=== PATIENT | female | born 1985 | race African-American/Black ===

== ENCOUNTER 2017-04-07 13:35 | Emergency (ER) | payer OTHER ==
[~2017-04-07] VITALS: Ht 162.6 cm; Wt 79.4 kg
[2017-04-07 16:58] VITALS: BP 146/89
[2017-04-07] MEDS ORDERED: cefTRIAXone SOD 1,000 MG VL IM ONE (17:30)
[2017-04-07] MEDS ORDERED: IBUPROFEN 800 MG TAB PO ONE (17:30)
== END 2017-04-07 17:56 | disposition home or self-care (01) ==
LOC: ER 13:35
DX: J03.90 Acute tonsillitis, unspecified (principal)
CPT/HCPCS: 96372; 99283; J0696

== ENCOUNTER 2017-08-06 13:59 | Emergency (ER) | payer OTHER, MEDICAID ==
[~2017-08-06] VITALS: Ht 162.6 cm; Wt 79.4 kg
[2017-08-06 15:11] VITALS: BP 124/63
[2017-08-06] MEDS ORDERED: IBUPROFEN 800 MG TAB PO ONE (16:00)
[2017-08-06] MEDS ORDERED: CYCLOBENZAPRINE HCL 10 MG TAB PO ONE (16:00)
== END 2017-08-06 16:59 | disposition home or self-care (01) ==
LOC: ER 14:08
DX: S13.4XXA Sprain of ligaments of cervical spine, initial encounter (principal); V43.62XA Car passenger injured in collision with other type car in traffic accident, initial encounter; Y93.89 Activity, other specified; Y92.89 Other specified places as the place of occurrence of the external cause; Y99.8 Other external cause status
CPT/HCPCS: 72125; 81025

== ENCOUNTER 2017-12-24 18:02 | Emergency (ER) | payer OTHER, MEDICAID ==
[~2017-12-24] VITALS: Ht 165.1 cm; Wt 81.6 kg
[2017-12-24 18:28] VITALS: BP 155/89
== END 2017-12-24 18:57 | disposition left against medical advice (07) ==
LOC: ER 18:02
DX: R73.9 Hyperglycemia, unspecified (principal); Z53.21 Procedure and treatment not carried out due to patient leaving prior to being seen by health care provider
CPT/HCPCS: 82962

== ENCOUNTER 2019-03-27 11:16 | Emergency (ER) | payer MEDICAID, OTHER ==
[~2019-03-27] VITALS: Ht 162.6 cm; Wt 77.1 kg
[2019-03-27 11:34] VITALS: BP 131/73
[2019-03-27] MEDS ORDERED: KETOROLAC TROMETH 60MG/2ML VIAL IM ONE (14:15)
[2019-03-27] MEDS ORDERED: cefTRIAXone SOD 1,000 MG VL IM ONE (14:15)
== END 2019-03-27 14:41 | disposition home or self-care (01) ==
LOC: ER 11:16
DX: N76.2 Acute vulvitis (principal)
CPT/HCPCS: 96372; 99283; J0696; J1885

== ENCOUNTER 2019-03-30 11:42 | Emergency (ER) | payer MEDICAID ==
[~2019-03-30] VITALS: Ht 162.6 cm; Wt 77.1 kg
[2019-03-30] MEDS ORDERED: LIDOCAINE 1% HCL (LOCAL ANESTH.) INJ 20ML MDV IJ ONE (15:30)
[2019-03-30] MEDS ORDERED: KETOROLAC TROMETH 60MG/2ML VIAL IM ONE (16:15)
[2019-03-30 16:30] VITALS: BP 125/80
== END 2019-03-30 16:34 | disposition home or self-care (01) ==
LOC: ER 11:47
DX: N76.4 Abscess of vulva (principal)
CPT/HCPCS: 56405; 96372; 99284; C1887; J1885; J2001

== ENCOUNTER 2023-01-04 16:51 | Emergency (ER) | payer MEDICAID ==
[~2023-01-04] VITALS: Ht 152.4 cm; Wt 74.4 kg
[2023-01-04 18:47] VITALS: TEMP 98.2
[2023-01-04 19:40] LABS: Alanine Aminotransferase 16 U/L (7-40); Albumin 4.5 g/dL (3.2-4.8); Alkaline Phosphatase 66 U/L (46-116); Anion Gap 4 (5-15); Aspartate Aminotransferase 13 U/L (13-40); BUN/Creatinine Ratio 8.2 (10.0-20.0); Basophils # (auto) 0 10 ^3/uL (0-0.2); Blood Urea Nitrogen 8 mg/dL (9-23); Carbon Dioxide 29 mmol/L (20-30); Chloride 106 mmol/L (98-107); Eosinophils # (auto) 0.1 10 ^3/uL (0-0.8); Glucose 90 mg/dL (74-106); Neutrophils # (auto) 4.3 10 ^3/uL (1.6-8.6); Potassium 3.4 mmol/L (3.5-5.1); Sodium 139 mmol/L (136-145)
[2023-01-04 19:41] LABS: Basophils % (auto) 0.6 % (0.0-2.0); Bilirubin, Total 0.3 mg/dL (0.2-1.0); Eosinophils % (auto) 1.3 % (0.0-7.0); Hemoglobin 8.4 g/dL (12.2-16.2); Lymphocytes # (auto) 1.4 10 ^3/uL (0.4-5.4); Lymphocytes % (auto) 23.1 % (10.0-50.0); Mean Corpuscular Hemoglobin 20.5 pg (28.0-32.0); Mean Corpuscular Volume 66.4 fL (80.0-100.0); Monocytes # (auto) 0.4 10 ^3/uL (0-1.3); Monocytes % (auto) 6.8 % (0.0-12.0); Neutrophils % (auto) 68.2 % (37.0-80.0); Red Blood Cells 4.07 10^6/uL (4.0-5.20); Total Protein 7.4 g/dL (5.7-8.2); White Blood Cell 6.2 10^3/uL (4.4-10.8)
[2023-01-04 21:25] VITALS: BP 164/93; PULSE 86; RESP 18; O2SAT 98
[2023-01-04] MEDS ORDERED: AML5T PO (21:36)
== END 2023-01-04 21:44 | disposition home or self-care (01) ==
LOC: ER 16:51
DX: M79.89 Other specified soft tissue disorders (principal); E11.9 Type 2 diabetes mellitus without complications; E78.5 Hyperlipidemia, unspecified; F15.90 Other stimulant use, unspecified, uncomplicated; Z86.2 Personal history of diseases of the blood and blood-forming organs and certain disorders involving the immune mechanism; Z79.899 Other long term (current) drug therapy
CPT/HCPCS: 36415; 80053; 83880; 84484; 85025

== ENCOUNTER 2024-10-13 21:08 | Inpatient (IN) | payer MEDICAID ==
[~2024-10-13] VITALS: Ht 165.1 cm; Wt 88.6 kg
[~2024-10-13 21:08] MED LIST: AML5T PO
--- NOTE | 2024-10-13 21:25 | ECG ---
[facility] Test Date: 2024-10-13 Test Time: 21:14:39 Pat Name: KATY EGAN Department: ER Room: 0291T Gender: F Supply Chain Coordinator: MARIA T : 1985 Requested By: MANFRED FRANCO Order Number: [id number] Reading MD: Jack Carvalho Measurements Intervals [place] Rate: 185 P: 0 CT: 0 QRS: 78 QRSD: 97 T: 15 QT: 289 QTc: 508 Interpretive Statements Supraventricular tachycardia Minimal ST depression, inferior leads Electronically Signed On 10-17-2024 18:55:50 PDT by Jack Carvalho Please click the below link to view image of tracing.
[2024-10-13 21:30] VITALS: PULSE 187; O2SAT 98
[2024-10-13] MEDS: SODIUM CHLORIDE 0.9% 1,000 ML IV ONE (21:32)
[2024-10-13] MEDS: ADENOSINE 6 MG/2 ML INJ IV ONE ×2 (21:32)
--- NOTE | 2024-10-13 21:39 | ECG ---
[facility] Test Date: 2024-10-13 Test Time: 21:38:11 Pat Name: KATY EGAN Department: ED Room: 0291T Gender: F Drug Clerk: dipti : 1985 Requested By: MANFRED FRANCO Order Number: [id number] Reading MD: Jack Carvalho Measurements Intervals [place] Rate: 109 P: 57 MT: 143 QRS: 84 QRSD: 85 T: 12 QT: 350 QTc: 472 Interpretive Statements Sinus tachycardia Borderline T abnormalities, anterior leads Electronically Signed On 10-17-2024 18:55:58 PDT by Jack Carvalho Please click the below link to view image of tracing.
[2024-10-13 22:00] LABS: Alanine Aminotransferase 36 U/L (7-40); Alkaline Phosphatase 69 U/L (46-116); Anion Gap 15 (5-15); BUN/Creatinine Ratio 9.6 (10.0-20.0); Blood Urea Nitrogen 17 mg/dL (9-23); Calcium 9.7 mg/dL (8.7-10.4); Carbon Dioxide 21 mmol/L (20-31); Chloride 103 mmol/L (98-107); Potassium 3.7 mmol/L (3.5-5.1); Sodium 139 mmol/L (136-145); Total Protein 6.8 g/dL (5.7-8.2)
[2024-10-13 22:01] LABS: Albumin 4.4 g/dL (3.2-4.8); Bilirubin, Total 0.3 mg/dL (0.2-1.0)
[2024-10-13 22:05] LABS: Glucose 397 mg/dL (74-106)
--- NOTE | 2024-10-13 22:33 | DVH ---
CHEST RADIOGRAPH Indication: cp Technique: Single frontal view of the chest was obtained COMPARISON: None FINDINGS: Lines and Tubes: None Lungs: Clear Pleura: No effusion. No pneumothorax. Cardiomediastinal contours: Unremarkable Bones: Unremarkable IMPRESSION: No abnormality demonstrated.
--- NOTE | 2024-10-13 22:41 | ED.PDOC ---
History of Present Illness HPI Comments 39 y/o F presents with relative for c/c of chest pain, palpitations, shortness of breath, lightheadedness, bilateral leg weakness, and blurry vision. Patient endorses on sudden and unprovoked onset of symptoms, while putting clothes in her washing machine, 4 hours ago. Significant history of anemia, arrhythmia, regurgitation mitral valve, diabetes, hypertension, and hyperlipidemia. She reports on resolving previous arrhythmia episodes with calming technique but states on being unsuccessful when using it for current episode alongside NTG and blood pressure medication use. No recent stressors, strenuous activities, sick contact, injuries, or substance use endorsed. Patient denies any nausea, vomiting, cough, congestion, fever, chills, or further associated symptoms. Chief Complaint: Chest Pain Time Seen by MD: 21:15 Primary Care Provider: IVANNA Vitale Notes: Nurses Notes, Medications, Allergies Allergies: Coded Allergies: NO KNOWN ALLERGIES (Unverified , 02/02/16) Home Meds Active Scripts Amlodipine Besylate (NORVASC TABLET) 5 Mg Tb, 1 TAB PO DAILY, #30 TAB 0 Refills Prov:MILTON ALEJANDRO 01/04/23 Information Source: Patient Mode of Arrival: Ambulatory Severity: Moderate Timing: Hours Duration: Since onset Prehospital treatment: NTG, Other (blood pressure medications ) Review of Systems: REVIEW OF SYSTEMS: No fever, no chills, or fatigue HEENT: Blurry vision. No sore throat, no earache, no congestion, no neck pain. Cardiac: Chest pain and palpitations and lightheadedness Lungs: Shortness of breath, no cough. GI: No nausea, no vomiting, no diarrhea, no constipation, no abdominal pain : No dysuria, frequency, or urgency. No hematuria. Musculoskeletal: No joint pain , no joint swelling, no extremity edema. Skin: No rash, no itching. Neuro: Bilateral leg weakness, no headache, no dizziness, Vital Signs Vital Signs Date Time Temp Pulse Resp B/P (MAP) Pulse Ox O2 Delivery O2 Flow Rate FiO2 10/13/24 22:41 10/13/24 22:00 12 164/92 (116) 94 10/13/24 21:30 98.0 98.0 10/13/24 21:30 Room Air* 0 21 Physical Exam General: Awake, alert and oriented. No acute distress. Skin: Skin in warm, dry and intact. Appropriate color for ethnicity. HEENT: The head is normocephalic and atraumatic. Conjunctivae are clear without exudates or hemorrhage. Sclera is non-icteric. EOM are intact. No signs of nysta gmus. Eyelids are normal in appearance without swelling or lesions. Oral mucosa is pink and moist Neck: The neck is supple with normal range of motion. No JVD. Cardiac: Rapid rate but regular rhythm. No murmurs, gallops, or rubs are auscultated. Respiratory: No signs of respiratory distress. Lung sounds are clear in all lobes bilaterally without rales, rhonchi, or wheezes. Abdominal: Abdomen is soft, non-tender without distention, guarding or rigidity. Bowel sounds are present and normoactive in all four quadrants. Extremities: Upper and lower extremities are atraumatic in appearance without deformity or edema. Neurological: The patient is awake, alert and oriented to person, place, and time with normal speech. Speech is clear. There is no facial asymmetry. Psychiatric: Appropriate mood and affect. Good judgement and insight. Past Medical History PAST MEDICAL HISTORY: Anemia, DM, High Lipids, HTN Past Medical History (Other): arrhythmia regurgitation mitral valve Surgical History: Denies all surgeries HOURLY CAREGIVER History: No Pertinent HOURLY CAREGIVER History Family History Family History: Unknown Social History Smoker: Non-Smoker Alcohol: Denies ETOH Use Drugs: Marijuana Lives In: Home Was a procedure done? Was a procedure done?: No EKG EKG #1: Pulse Rate (adult): 185 [place]: Normal Cardiac Rhythm: PSVT Block: None Hypertrophy: None ST: Normal EKG #2: Pulse Rate (adult): 109 [place]: Normal Cardiac Rhythm: ST Block: None Hypertrophy: None ST: Normal Differential Dx Considerations may include: Differential diagnoses considered include acute ischemic coronary syndrome, aortic dissection, cardiac tamponade, mediastinitis, pulmonary embolus, pneumothorax, tension pneumothorax, esophageal rupture, coronary artery vasospasm, myocarditis, pericarditis, pneumonia, pulmonary edema, esophageal tear, pancreatitis, aortic stenosis, dilated cardiomyopathy, hypertrophic cardiomyopathy, mitral valve prolapse, malignancy, pleuritis, pneumomediastinum, primary pulmonary hypertension, cholecystitis, esophageal spasm, esophagus, gastritis, GERD, peptic ulcer disease, costochondritis, fibromyalgia, rib fracture, herpes zoster, radicular syndromes, thoracic outlet syndrome, somatization, arrhythmia, tachycardia X-Ray, Labs, Meds, VS Vital Signs Date Time Temp Pulse Resp B/P (MAP) Pulse Ox O2 Delivery O2 Flow Rate FiO2 10/13/24 22:41 10/13/24 22:00 116 12 164/92 (116) 94 10/13/24 21:38 109 10/13/24 21:37 116 17 159/97 (117) 98 10/13/24 21:30 98.0 187 27 145/101 (116) 98 98.0 10/13/24 21:30 187 98 Room Air* 0 21 10/13/24 21:14 185 10/13/24 21:10 98.9 186 16 145/101 (116) 99 98.9 Lab Test 10/13/24 22:26 10/13/24 21:16 Range/Units Troponin I High Sensitivity 263 *H 162 *H </=34 ng/L White Blood Count 8.8 4.4-10.8 10^3/uL Red Blood Count 4.85 4.0-5.20 10^6/uL Hemoglobin 13.8 12.2-16.2 g/dL Hematocrit 41.2 36.0-46.0 % Mean Corpuscular Volume 85.1 80.0-100.0 fL Mean Corpuscular Hemoglobin 28.5 28.0-32.0 pg Mean Corpuscular Hemoglobin Concent 33.5 32.0-36.0 g/dL Red Cell Distribution Width 13.4 11.8-14.3 % Platelet Count 228 140-450 10^3/uL Mean Platelet Volume 9.7 6.9-10.8 fL Neutrophils (%) (Auto) 70.1 37.0-80.0 % Lymphocytes (%) (Auto) 21.7 10.0-50.0 % Monocytes (%) (Auto) 7.4 0.0-12.0 % Eosinophils (%) (Auto) 0.5 0.0-7.0 % Basophils (%) (Auto) 0.3 0.0-2.0 % Neutrophils # (Auto) 6.2 1.6-8.6 10 ^3/uL Lymphocytes # (Auto) 1.9 0.4-5.4 10 ^3/uL Monocytes # (Auto) 0.7 0-1.3 10 ^3/uL Eosinophils # (Auto) 0 0-0.8 10 ^3/uL Basophils # (Auto) 0 0-0.2 10 ^3/uL Nucleated Red Blood Cells 0.0 % Prothrombin Time 10.9 9.3-11.8 sec Prothrombin Time INR 1.03 0.9-1.15 Sodium Level 139 136-145 mmol/L Potassium Level 3.7 3.5-5.1 mmol/L Chloride Level 103 98-107 mmol/L Carbon Dioxide Level 21 20-31 mmol/L Anion Gap 15 5-15 Blood Urea Nitrogen 17 9-23 mg/dL Creatinine 1.78 H 0.550-1.02 mg/dL Glomerular Filtration Rate Calc 36 >90 mL/min BUN/Creatinine Ratio 9.6 L 10.0-20.0 Serum Glucose 397 H 74-106 mg/dL Calcium Level 9.7 8.7-10.4 mg/dL Total Bilirubin 0.3 0.2-1.0 mg/dL Aspartate Amino Transferase (AST) 34 13-40 U/L Alanine Aminotransferase (ALT) 36 7-40 U/L Alkaline Phosphatase 69 46-116 U/L B-Type Natriuretic Peptide 93.95 0-100 pg/mL Total Protein 6.8 5.7-8.2 g/dL Albumin 4.4 3.2-4.8 g/dL Thyroid Stimulating Hormone (TSH) 2.51 0.55-4.78 uIU/mL Current Medications Medications (Trade) Dose Ordered Sig/Jacob Route Start Time Stop Time Status Last Admin Sodium Chloride 1,000 ml @ 1,000 mls/hr Q1H ONCE IV 10/13/24 21:30 10/13/24 22:29 DC 10/13/24 21:32 Adenosine (Adenosine) 6 mg ONCE ONCE IV 10/13/24 22:00 10/13/24 22:01 DC 10/13/24 21:32 Aspirin 324 mg ONCE ONCE PO 10/13/24 23:00 10/13/24 23:01 DC 10/13/24 23:08 CHEST RADIOGRAPH Indication: cp Technique: Single frontal view of the chest was obtained COMPARISON: None FINDINGS: Lines and Tubes: None Lungs: Clear Pleura: No effusion. No pneumothorax. Cardiomediastinal contours: Unremarkable Bones: Unremarkable IMPRESSION: No abnormality demonstrated. Time of 1ST Reevaluation: 21:45 Reevaluation 1ST: Unchanged Patient Education/Counseling: Treatment Family Education/Counseling: Treatment SEPSIS Sepsis Screen Date sepsis recognized/suspect: Oct 13, 2024 Time Sepsis recognized/suspect: 2109 Recent Procedure: No On Antibiotic Therapy: No Respiratory Rate >20: No Heart Rate >90: Yes Temp<36 C (96.8 F) or >38.3 C: No SBP <90 or MAP <65 mmHG: No New Acute Mental Status Change: No Is the patient on CPAP, BIPAP,: No Physician Orders Titrate Oxygen (10/13/24 21:16) Oxygen (10/13/24 ) Continous Pulse Oximetry (10/13/24 21:16) Saline Lock (10/13/24 21:16) Audit Analyst (10/13/24 ) Vital Signs Q1HR (10/13/24 21:16) Chest Xray 1 View (10/13/24 21:16) Electrocardigram (10/14/24 00:16) Electrocardigram (10/13/24 22:58) Electrocardigram (10/14/24 01:58) Vital Signs Date Time Temp Pulse Resp B/P (MAP) Pulse Ox O2 Delivery O2 Flow Rate FiO2 10/13/24 22:41 10/13/24 22:00 116 12 164/92 (116) 94 10/13/24 21:38 109 10/13/24 21:37 116 17 159/97 (117) 98 10/13/24 21:30 98.0 187 27 145/101 (116) 98 98.0 10/13/24 21:30 187 98 Room Air* 0 21 10/13/24 21:14 185 10/13/24 21:10 98.9 186 16 145/101 (116) 99 98.9 Laboratory Tests Test 10/13/24 21:16 White Blood Count 8.8 10^3/uL (4.4-10.8) Medications Medications Dose Ordered Sig/Jacob Route Start Time Stop Time Status Last Admin Dose Admin Adenosine 6 mg ONCE ONCE IV 10/13/24 22:00 10/13/24 22:01 DC 10/13/24 21:32 Aspirin 324 mg ONCE ONCE PO 10/13/24 23:00 10/13/24 23:01 DC 10/13/24 23:08 Sodium Chloride 1,000 ml @ 1,000 mls/hr Q1H ONCE IV 10/13/24 21:30 10/13/24 22:29 DC 10/13/24 21:32 Departure 1 Departure Time of Disposition: 22:45 Impression: Primary Impression: Supraventricular tachycardia Additional Impression: GINA (acute kidney injury) Disposition: ADMITTED INPATIENT Condition: Stable Comments 39-year-old female who arrived to the emergency department with chest pain, palpitations and shortness of breath. Patient was found to be in SVT at a rate of 185. Patient converted to sinus rhythm after 6 mg adenosine. IV fluids initiated in the ED Elevated troponin likely secondary to SVT, will trend. Patient admitted to hospitalist service for further treatment, evaluation and monitoring. Extensive evaluation was performed in attempt to identify or rule out: (See differential diagnosis section) The following tests were ordered, and results were reviewed by me and discussed with patient: (See diagnostic results section) The following test were independently interpreted by me: EKG I reviewed and agreed with the following test results read by other providers: N/A I reviewed the following notes from the pt's past medical encounters: Chest x- ray Additional information was gathered from interviewing the following independent historians: January 04, 2023 encounter for swelling of both lower extremities Discussion of management or test interpretation with external physician/other qualified health personal care service provider: N/A Addressed an acute or chronic illness that poses a threat to life or bodily function: SVT, GINA Decision regarding hospitalization or escalation of hospital level of care: Risk and benefits of admission for further treatment of patient's condition was considered. Due to patient's current clinical condition, high risk of decline and poor outcome if discharged and need for further inpatient management and monitoring, patient will be admitted to the hospital. Drug therapy requiring intensive monitoring for toxicity: IV adenosine Parenteral controlled substances: N/A Decision regarding elective major surgery with identified patient or procedure risk factors: N/A Decision regarding emergency major surgery: N/A Decision not to resuscitate or to de-escalate care because of poor prognosis: N/A Diagnosis or treatment significantly limited by social determinants of health: N/A Critical Care Note Critical Care Time?: Yes (35 min-critical care time only) Critical care comment: Due to a high probability of clinically significant, life threatening deterioration, the patient required my highest level of preparedness to intervene emergently and I personally spent this critical care time directly and personally managing the patient. This critical care time included obtaining a h istory; examining the patient; pulse oximetry; ordering and review of studies; arranging urgent treatment with development of a management plan; evaluation of patient's response to treatment; frequent reassessment; and, discussions with other providers. This critical care time was performed to assess and manage the high probability of imminent, life-threatening deterioration that could result in multi-organ failure. It was exclusive of separately billable procedures and treating other patients and teaching time. Please see my other sections and the rest of the note for further information on patient assessment and treatment. Stability Stability form required: No Heart Score Heart Score: Heart Score Response (Comments) Value History Highly Suspicious 2 EKG Normal 0 Age >65 2 Risk Factors N/A 0 Troponin >3 x's Normal limit 2 Total 6 I personally scribed for MANFRED FRANCO MD ([email or web address]) on 10/13/24 at 22:41. Electronically submitted by Lázaro Grimm ([email or web address]). MANFRED FRANCO MD Oct 13, 2024 22:41
[2024-10-13 22:48] LABS: Hematocrit 41.2 % (36.0-46.0); Hemoglobin 13.8 g/dL (12.2-16.2); Mean Corpuscular Hemoglobin 28.5 pg (28.0-32.0); Mean Corpuscular Volume 85.1 fL (80.0-100.0); Nucleated Red Blood Cells % 0.0 %
[2024-10-13 23:07] LABS: INR 1.03 (0.9-1.15); Prothrombin Time 10.9 sec (9.3-11.8)
[2024-10-13] MEDS ORDERED: NITROGLYCERIN 0.4 MG SL TAB SL PRN (23:45)
[2024-10-13] MEDS ORDERED: MORPHINE SULFATE INJ 2 MG/ml SYRG IV PRN (23:45)
[2024-10-13] MEDS ORDERED: ONDANSETRON HCL 4 MG/2 ML VIAL IV PRN (23:45)
[2024-10-13] MEDS ORDERED: DEXTROSE (50%) 50ML SYRG IV PRN (23:45)
--- NOTE | 2024-10-14 00:11 | DVHHP2 ---
History of Present Illness Reason for Visit: Palpitations History of Present Illness 39-year-old female presents for evaluation of palpitations. Patient reports developing palpitations with associated lightheadedness and mild shortness for breath. EN route patient was noted to be on SVT and was given adenosine. C urrently patient is tachycardic in the low 100s. Denies chest pain or shortness for breath. No other acute complaints reported. Past Medical History Hypertension, dyslipidemia, diabetes mellitus, anemia, mitral valve regurgitation,? Arrhythmia Past Surgical History Denies Family History Noncontributory Smoke: No ALCOHOL: none Drugs: Marijuana Lives: with Family Review of Systems Review of Systems Review of systems are currently negative otherwise addressed in HPI. Allergies: Coded Allergies: NO KNOWN ALLERGIES (Unverified , 02/02/16) Medications Current Medications Medications Dose Ordered Sig/Jacob Route Start Time Stop Time Status Last Admin Dose Admin Metoprolol Succinate 50 mg DAILY PO 10/14/24 10:00 UNV Amlodipine Besylate 5 mg DAILY PO 10/14/24 10:00 UNV Atorvastatin Calcium 10 mg HS PO 10/14/24 22:00 UNV Exam Vital Signs Vital Signs Date Time Temp Pulse Resp B/P (MAP) Pulse Ox O2 Delivery O2 Flow Rate FiO2 10/13/24 22:41 10/13/24 22:00 12 164/92 (116) 94 10/13/24 21:30 98.0 98.0 10/13/24 21:30 Room Air* 0 21 Exam Gen: 39-year-old female in mild distress Skin: Warm, dry, normal color and texture, no rash. HEENT: Normocephalic atraumatic, mucous membranes moist and pink. Neck: Cervical and supraclavicular nodes normal without enlargement, trachea is midline, thyroid gland is normal without masses. Pulmonary: Clear to auscultation and percussion bilaterally. Cardiac: Tachycardia Abdomen: Soft, nontender, nondistended, bowel sounds present all 4 quadrants, no guarding, no rigidity, no organomegaly. Extremities: No cyanosis, clubbing, no edema Neuro: Cranial nerves II through XII grossly intact, normal affect and speech, no focal motor deficits. Labs/Xrays ORDERING PHYSICIAN: MANFRED FRANCO MD PROCEDURE(s): CXR1 - CHEST XRAY 1 VIEW REASON: cp ORDER NUMBER(s): [id number], ACCESSION NUMBER(s): [id number] CHEST RADIOGRAPH Indication: cp Technique: Single frontal view of the chest was obtained COMPARISON: None FINDINGS: Lines and Tubes: None Lungs: Clear Pleura: No effusion. No pneumothorax. Cardiomediastinal contours: Unremarkable Bones: Unremarkable IMPRESSION: No abnormality demonstrated. Labs Test 10/13/24 22:26 10/13/24 21:16 Range/Units Troponin I High Sensitivity 263 *H </=34 ng/L White Blood Count 8.8 4.4-10.8 10^3/uL Red Blood Count 4.85 4.0-5.20 10^6/uL Hemoglobin 13.8 12.2-16.2 g/dL Hematocrit 41.2 36.0-46.0 % Mean Corpuscular Volume 85.1 80.0-100.0 fL Mean Corpuscular Hemoglobin 28.5 28.0-32.0 pg Mean Corpuscular Hemoglobin Concent 33.5 32.0-36.0 g/dL Red Cell Distribution Width 13.4 11.8-14.3 % Platelet Count 228 140-450 10^3/uL Mean Platelet Volume 9.7 6.9-10.8 fL Neutrophils (%) (Auto) 70.1 37.0-80.0 % Lymphocytes (%) (Auto) 21.7 10.0-50.0 % Monocytes (%) (Auto) 7.4 0.0-12.0 % Eosinophils (%) (Auto) 0.5 0.0-7.0 % Basophils (%) (Auto) 0.3 0.0-2.0 % Neutrophils # (Auto) 6.2 1.6-8.6 10 ^3/uL Lymphocytes # (Auto) 1.9 0.4-5.4 10 ^3/uL Monocytes # (Auto) 0.7 0-1.3 10 ^3/uL Eosinophils # (Auto) 0 0-0.8 10 ^3/uL Basophils # (Auto) 0 0-0.2 10 ^3/uL Nucleated Red Blood Cells 0.0 % Prothrombin Time 10.9 9.3-11.8 sec Prothrombin Time INR 1.03 0.9-1.15 Sodium Level 139 136-145 mmol/L Potassium Level 3.7 3.5-5.1 mmol/L Chloride Level 103 98-107 mmol/L Carbon Dioxide Level 21 20-31 mmol/L Anion Gap 15 5-15 Blood Urea Nitrogen 17 9-23 mg/dL Creatinine 1.78 H 0.550-1.02 mg/dL Glomerular Filtration Rate Calc 36 >90 mL/min BUN/Creatinine Ratio 9.6 L 10.0-20.0 Serum Glucose 397 H 74-106 mg/dL Calcium Level 9.7 8.7-10.4 mg/dL Total Bilirubin 0.3 0.2-1.0 mg/dL Aspartate Amino Transferase (AST) 34 13-40 U/L Alanine Aminotransferase (ALT) 36 7-40 U/L Alkaline Phosphatase 69 46-116 U/L B-Type Natriuretic Peptide 93.95 0-100 pg/mL Total Protein 6.8 5.7-8.2 g/dL Albumin 4.4 3.2-4.8 g/dL Thyroid Stimulating Hormone (TSH) 2.51 0.55-4.78 uIU/mL Assessment/Plan Assessment/Plan Assessment SVT Hypertension Diabetes mellitus Plan Admit the patient to telemetry to the hospitalist Cardiology consult Echocardiogram pending Resume home medications Continue treatment per orders. Plan discussed with: Patient My Orders Orders - MAXIMILIAN CRUZ Procedure Category Date Status Time Metoprolol Xl PHA 10/14/24 Logged Succinate (Toprol Xl) 10:00 Amlodipine Tablet PHA 10/14/24 Logged (Norvasc Tablet) 10:00 Atorvastatin (Lipitor) PHA 10/14/24 Logged 22:00 * Cardiology Consult CONS 10/13/24 Transmitted 23:45 Basic Metabolic Panel LAB 10/14/24 Verified 04:00 Glucose Blood PHA 10/14/24 Transmitted (Accu-Chek Comfort 07:00 Mild Sliding Scale PHA 10/14/24 Transmitted 07:00 Dextrose 50% Syringe PHA 10/13/24 Transmitted 23:45 Admit ADMIT 10/13/24 Transmitted 23:45 Ondansetron Hcl PHA 10/13/24 Transmitted (Zofran) 23:45 Cardiac DIET 10/14/24 Transmitted Diet-2gna,Lofat,Lochol Breakfast Echo 2d Mode Cardiac US 10/13/24 Logged DOP 23:45 Condition: Fair ESTHER 10/13/24 In Process 23:45 Bedrest With Bathroom [facility] 10/13/24 In Process Privileg 23:45 Nitroglycerin [facility] 10/13/24 Transmitted Sublingual (Ntrostat 23:45 Morphine Sulfate [facility] 10/13/24 Transmitted Injection 23:45 Stat Ekg For Chest [facility] 10/13/24 In Process Pain 23:45 Notify Md Of Changes [facility] 10/13/24 In Process From Base 23:45 Pie Filler For [facility] 10/13/24 In Process 24 Hours 23:45 Emergency Dysrhythmia [facility] 10/13/24 In Process Protocol 23:45 Rhythm Strips Once [facility] 10/13/24 In Process Every Shift 23:45 Oxygen By Nasal 10/13/24 Transmitted Cannula 23:45 Date of Service: Oct 13, 2024 Billing Provider: MAXIMILIAN CRUZ Common Visit Codes: [id number] INP/OBS CARE (HIGH) MAXIMILIAN CRUZ Oct 14, 2024 00:11
[2024-10-14] MEDS: ENOXAPARIN SOD 100 MG/1 ML SYRINGE SC ONE (01:24)
[2024-10-14 04:59] LABS: Sodium 143 mmol/L (136-145)
[2024-10-14 05:00] LABS: Anion Gap 10 (5-15); Carbon Dioxide 24 mmol/L (20-31)
[2024-10-14 05:05] LABS: Calcium 8.2 mg/dL (8.7-10.4); Chloride 109 mmol/L (98-107); Glucose 117 mg/dL (74-106); Potassium 3.4 mmol/L (3.5-5.1)
[2024-10-14 05:48] LABS: BUN/Creatinine Ratio 13.9 (10.0-20.0); Blood Urea Nitrogen 15 mg/dL (9-23)
[2024-10-14] MEDS: InsuLIN REG 1unit/0.01ml Soln (100units/ml) SC SCH (06:22)
[2024-10-14] MEDS: ACCU-CHEK COMFORT CURVE STRIP VI SCH (06:23)
[2024-10-14 08:31] VITALS: PULSE 187; PULSE 96; RESP 17; O2SAT 98
--- NOTE | 2024-10-14 09:22 | DVHINCON2 ---
ESTELLA QUIÑONES [facility] 10/14/24 0922: Date Seen: Oct 14, 2024 Referring Physician RENA Pope Reason for Consultation SVT History of Present Illness This is a pleasant 39-year-old female who presented to the emergency room with a chief complaint of palpitations for 4 hours. The patient reports she was at home doing laundry at the onset of symptoms describing a fluttering sensation, chest heaviness, dizziness, visual disturbance, and lower extremity weakness. She waiting for approximately 4 hours for symptoms to resolve with sister ev entually bring her to the emergency room for further cardiac evaluation. Upon arrival to the emergency room she underwent a 12 lead electrocardiogram revealing a supraventricular tachycardia rhythm at 185 bpm for which he was medicated with the adenosine 6 mg IV with successful conversion into a sinus tachycardia rhythm. Denies any further symptoms. Reports she follows up in the outpatient setting with Dr. Donovan undergoing a Holter monitor revealing sinus tachycardic events, a twelve-lead electrocardiogram deemed to be unremarkable, and a transthoracic echocardiogram revealing mitral valve regurgitation of unspecified degree. She was Rx Metoprolol 37.5mg BID this past but unfortunately patient was not able to pick it up as the pharmacy was closed. States there was poor oral hydration yesterday. Denies the use of coffee, energy drinks or pre-workout. Other significant medical history includes hypertension, dyslipidemia, insulin-dependent diabetes mellitus, and obesity. Past Medical History Past medical history reviewed. No other significant than mentioned above. Past Surgical History Past Surgical history reviewed. No other significant than mentioned above. Family History Family history reviewed. Social History Denies the use of alcohol, or tobacco use. Admits to cannabinoid use. Allergies: Coded Allergies: NO KNOWN ALLERGIES (Unverified , 02/02/16) Home Meds Active Scripts Amlodipine Besylate (NORVASC TABLET) 5 Mg Tb, 1 TAB PO DAILY, #30 TAB 0 Refills Prov:MILTON ALEJANDRO 01/04/23 Home Meds Home medications reviewed. Current Medications Current Medications Medications (Trade) Dose Ordered Sig/Jacob Route PRN Reason Start Time Stop Time Status Last Admin Metoprolol Succinate (Toprol Xl) 50 mg DAILY PO 10/14/24 10:00 Amlodipine Besylate (Norvasc Tablet) 5 mg DAILY PO 10/14/24 10:00 Atorvastatin Calcium (Lipitor) 10 mg HS PO 10/14/24 22:00 Diagnostic Test (Pha) (Accu-Chek Comfort Curve T) 1 strip ACHS 10/14/24 07:00 10/14/24 06:23 Insulin Human Regular (InsuLIN R) ACHS SC 10/14/24 07:00 Dextrose 50 ml UD PRN IV Blood Sugar LESS THAN 60 10/13/24 23:45 Ondansetron HCl (Zofran) 4 mg Q4HP PRN IV NAUSEA / VOMITING 10/13/24 23:45 Nitroglycerin (Ntrostat Sublingual) 0.4 mg Q5MINP PRN SL FOR CHEST PAIN 10/13/24 23:45 Morphine Sulfate 2 mg Q30M PRN IV FOR CHEST PAIN 10/13/24 23:45 Review of Systems Constitutional: Lower extremity weakness Ears, Nose, & Throat: No symptom reported Eyes: No symptom reported Neurological: Visual disturbance, dizziness Pulmonary/Respiratory: No symptom reported Cardiovascular: Palpitations, chest heaviness Gastrointestinal: No symptom reported Genitourinary: No symptom reported Musculoskeletal: No symptom reported Skin: No symptom reported Psychiatric: No symptom reported Endocrine: No symptom reported Hemotologic/Lymphatic: No symptom reported Vital Signs Vital Signs Date Time Temp Pulse Resp B/P (MAP) Pulse Ox O2 Delivery O2 Flow Rate FiO2 10/14/24 08:31 96 17 98 Room Air* 0 21 10/14/24 07:30 98.5 122/82 (95) 98.5 Physical Exam General Appearance: Cooperative. Well developed. Obese. In no acute distress Head Exam: Normal inspection Neck Exam: Normal inspection. Non-tender. Normal alignment Pulmonary/Respiratory: Chest non-tender. Clear bilateral breath sounds Cardiovascular/Chest: Regular rate and rhythm. S1, S2. Sinus tachycardia low 100s bpm. No murmurs. No JVD. Peripheral Pulses: 2+ Radial (R). 2+ Radial (L). 2+ Pedal (R). 2+ Pedal (L) Abdominal Exam: Normal bowel sounds. Soft. Nontender. No hepatospenomegaly. No masses Ankle Exam: Negative ankle edema Lower extremities: Negative lower extremity edema Neuro/Mental Status: A&O x4. Coherent Thoughts/Psych: Normal thought pattern. Appropriate mood and affect. Good judgement and insight Appearance: In no acute distress Skin Exam: Normal inspection. Normal color. Warm. Dry Labs/Diagnostic Data Labs Test 10/14/24 06:20 10/14/24 03:34 10/14/24 00:27 10/13/24 21:16 Range/Units POC Glucose 109 H 70-106 mg/dl Sodium Level 143 136-145 mmol/L Potassium Level 3.4 L 3.5-5.1 mmol/L Chloride Level 109 H 98-107 mmol/L Carbon Dioxide Level 24 20-31 mmol/L Anion Gap 10 5-15 Blood Urea Nitrogen 15 9-23 mg/dL Creatinine 1.08 #H 0.550-1.02 mg/dL Glomerular Filtration Rate Calc 66 >90 mL/min BUN/Creatinine Ratio 13.9 10.0-20.0 Serum Glucose 117 H 74-106 mg/dL Calcium Level 8.2 L 8.7-10.4 mg/dL Troponin I High Sensitivity 710 *H </=34 ng/L White Blood Count 8.8 4.4-10.8 10^3/uL Red Blood Count 4.85 4.0-5.20 10^6/uL Hemoglobin 13.8 12.2-16.2 g/dL Hematocrit 41.2 36.0-46.0 % Mean Corpuscular Volume 85.1 80.0-100.0 fL Mean Corpuscular Hemoglobin 28.5 28.0-32.0 pg Mean Corpuscular Hemoglobin Concent 33.5 32.0-36.0 g/dL Red Cell Distribution Width 13.4 11.8-14.3 % Platelet Count 228 140-450 10^3/uL Mean Platelet Volume 9.7 6.9-10.8 fL Neutrophils (%) (Auto) 70.1 37.0-80.0 % Lymphocytes (%) (Auto) 21.7 10.0-50.0 % Monocytes (%) (Auto) 7.4 0.0-12.0 % Eosinophils (%) (Auto) 0.5 0.0-7.0 % Basophils (%) (Auto) 0.3 0.0-2.0 % Neutrophils # (Auto) 6.2 1.6-8.6 10 ^3/uL Lymphocytes # (Auto) 1.9 0.4-5.4 10 ^3/uL Monocytes # (Auto) 0.7 0-1.3 10 ^3/uL Eosinophils # (Auto) 0 0-0.8 10 ^3/uL Basophils # (Auto) 0 0-0.2 10 ^3/uL Nucleated Red Blood Cells 0.0 % Prothrombin Time 10.9 9.3-11.8 sec Prothrombin Time INR 1.03 0.9-1.15 Total Bilirubin 0.3 0.2-1.0 mg/dL Aspartate Amino Transferase (AST) 34 13-40 U/L Alanine Aminotransferase (ALT) 36 7-40 U/L Alkaline Phosphatase 69 46-116 U/L B-Type Natriuretic Peptide 93.95 0-100 pg/mL Total Protein 6.8 5.7-8.2 g/dL Albumin 4.4 3.2-4.8 g/dL Thyroid Stimulating Hormone (TSH) 2.51 0.55-4.78 uIU/mL Assessment Supraventricular tachycardia status post chemical cardioversion Acute kidney injury, likely vasomotor nephropathy Hypokalemia/?hypomagnesemia NSTEMI, likely type 2 secondary to above Rule out structural heart disease Hypertension Dyslipidemia Insulin-dependent diabetes mellitus Obesity Plan/Recommendation (Dr. Donovan) The patient presented with supraventricular tachycardia status post successful chemical cardioversion. Initiate metoprolol XL, IVF hydration, and replete electrolytes as necessary for a potassium level >4 and magnesium level >2. Monitor ECG changes closely and notify of any further cardiac arrhythmias. Trend troponin levels for peak and fall levels. Continue follow-up with Dr. Donovan in the outpatient setting as scheduled. In the setting of an unremarkable transthoracic echocardiogram, there is no further cardiac workup indicated at this time. Strongly counseled on oral hydration. Thank you for allowing us to participate in this patient's care. Please call if you have any questions or concerns. This medical document was created using an electronic medical record system with voice recognition software and computerized dictation system. Although this document has been carefully reviewed, there might still be some phonetic and typographical errors. Occasional wrong-word or ``sound-alike substitutions may have occurred due to the inherent limitations of voice recognition software. These areas are purely typographical due to imperfections of the software programs and do not reflect any compromise in the patient's medical care. Please read the chart carefully and recognize, using context, where these substitutions have occurred. Plan discussed with: Patient, Other NYHA Physical activity limitations: NA Date of Service: Oct 14, 2024 Billing Provider: ESTELLA QUIÑONES Cardiology Common Codes: [id number] INP/OBS CARE (High) CATRACHITO DONOVAN MD 10/14/24 1310: Allergies: Coded Allergies: NO KNOWN ALLERGIES (Unverified , 02/02/16) Home Meds Active Scripts Amlodipine Besylate (NORVASC TABLET) 5 Mg Tb, 1 TAB PO DAILY, #30 TAB 0 Refills Prov:MILTON ALEJANDRO 01/04/23 Plan/Recommendation pt with classic AVNRT/ SVT start BB consider ablation as outpt if indicated based on symptoms pt agreeable to plan seen with cv team ESTELLA QUIÑONES Oct 14, 2024 09:22 CATRACHITO DONOVAN MD Oct 14, 2024 13:10
[2024-10-14] MEDS: MAGNESIUM SULFATE 1GM/100ML 100 ML IV ONE (10:01)
[2024-10-14] MEDS: SODIUM CHLORIDE 0.9% 1,000 ML IV ONE (10:02)
[2024-10-14] MEDS: METOPROLOL SUCCINATE XL 50 MG TAB PO SCH (10:07)
[2024-10-14 10:09] LABS: Triglycerides 107.0 mg/dL (< 150)
[2024-10-14 10:10] LABS: Magnesium 1.7 mg/dL (1.6-2.6)
[2024-10-14 10:11] LABS: Cholesterol 190.0 mg/dL (< 200); HDL Cholesterol 51.0 mg/dL (40-59)
[2024-10-14] MEDS: POTASSIUM EFFERVESENT TAB 25 MEQ PO ONE (10:13)
--- NOTE | 2024-10-14 11:25 | ECG ---
[facility] Test Date: 2024-10-14 Test Time: 00:19:26 Pat Name: KATY EGAN Department: ED Room: 0291T Gender: F [employer] Baster: : 1985 Requested By: MANFRED FRANCO Order Number: [id number] Reading MD: Jack Carvalho Measurements Intervals [place] Rate: 100 P: 51 ND: 140 QRS: 78 QRSD: 88 T: -1 QT: 344 QTc: 444 Interpretive Statements Sinus tachycardia Borderline T abnormalities, anterior leads Electronically Signed On 10-17-2024 18:56:20 PDT by Jack Carvalho Please click the below link to view image of tracing.
--- NOTE | 2024-10-14 12:50 | DVHSR ---
APPROVED REPORT EXAM: Two-dimensional and M-mode echocardiogram with Doppler and color Doppler. Blood Pressure: 155/100 mmHg INDICATION SVT RISK FACTORS Height: 65, Weight: 189 DIMENSIONS LVDd4.2 (3.8-5.7cm)LA (2D)4.6 (1.9-4.0cm)Aortic Root2.8 (2.0-3.7cm) LVDs3.0 (2.5-4.0cm)LA (MM) (1.9-4.0cm)Aortic Cusp Exc1.6 (1.5-2.0cm) EF (%) 56.0 (55-70%)Rt. Atrium4.0 (1.9-4.0cm)Asc. Aorta cm IVSd1.0 (0.7-1.1cm)RV (D) (1.8-2.4cm) PWd1.3 (0.7-1.1cm) Mitral Valve MitralMitral Stenosis E wave0.98m/sMV Mean GR.3mmHg A wave0.77m/sMV Peak GR.122mmHg E/A ratio1.32D MVAcm2 DECEL [id number] 1/2 Timems Aortic Valve Aortic ValveAortic Stenosis V10.77m/Nichole Mean GR.4mmHg V21.45m/Nichole Peak GR.8mmHg LVOT Diameter1.7 (1.8-2.4cm)Doppler AVA1.20cm2 Pulmonic Valve V21.07m/s Tricuspid Valve TR Velocity1.94m/s [id number] Other Information Technically limited study due to body habitus and patient position. Conclusion lvef 65% grade 1 diastolic dysfunction normal rv function left atrium enlarged mild no severe valve abnormalities noted
[2024-10-14 18:33] VITALS: BP 146/95; PULSE 91; RESP 20; TEMP 98.3; O2SAT 96
[2024-10-14] MEDS ORDERED: OMEP-434 PO (18:56)
[2024-10-14] MEDS ORDERED: GLIP10TA9 PO (18:56)
[2024-10-14] MEDS ORDERED: CHOL20007 PO (18:56)
[2024-10-14] MEDS ORDERED: FERR1TAB36 PO (18:56)
--- NOTE | 2024-10-14 19:22 | DVHPN2 ---
Subjective 39-year-old female with a known history of diabetes mellitus type 2, hypertension, dyslipidemia, morbid obesity class I initially presented to the hospital with palpitation for 4 hours found to have SVT status post Unasyn IV. Patient is currently denying any chest pain or palpitation. Reviewed: Care Plan Changes from previous H/P or p: No Changes Objective Vitals Vital Signs Date Time Temp Pulse Resp B/P (MAP) Pulse Ox O2 Delivery O2 Flow Rate FiO2 10/14/24 18:33 98.3 91 20 146/95 (112) 96 98.3 10/14/24 18:33 Room Air* 0 21 Medications Current Medications Medications Dose Ordered Sig/Jacob Route Start Time Stop Time Status Last Admin Dose Admin Metoprolol Succinate 50 mg DAILY PO 10/14/24 10:00 10/14/24 10:07 50 MG Atorvastatin Calcium 10 mg HS PO 10/14/24 22:00 Diagnostic Test (Pha) 1 strip ACHS 10/14/24 07:00 10/14/24 17:19 1 STRIP Insulin Human Regular ACHS SC 10/14/24 07:00 10/14/24 17:24 4 UNITS Dextrose 50 ml UD PRN IV 10/13/24 23:45 Ondansetron HCl 4 mg Q4HP PRN IV 10/13/24 23:45 Nitroglycerin 0.4 mg Q5MINP PRN SL 10/13/24 23:45 Morphine Sulfate 2 mg Q30M PRN IV 10/13/24 23:45 Laboratory Results Laboratory Tests 10/13/24 21:16 10/14/24 03:34 Chemistry Test 10/13/24 21:16 10/14/24 03:34 10/14/24 09:00 Albumin 4.4 g/dL (3.2-4.8) Calcium Level 9.7 mg/dL (8.7-10.4) 8.2 mg/dL (8.7-10.4) L Total Protein 6.8 g/dL (5.7-8.2) Magnesium Level 1.7 mg/dL (1.6-2.6) Coagulation Test 10/13/24 21:16 Prothrombin Time 10.9 sec (9.3-11.8) Prothrombin Time INR 1.03 (0.9-1.15) Lipid panel Test 10/14/24 09:00 Cholesterol Level 190 mg/dL (< 200) HDL Cholesterol 51 mg/dL (40-59) Triglycerides Level 107 mg/dL (< 150) Cardiac Markers Test 10/13/24 21:16 B-Type Natriuretic Peptide 93.95 pg/mL (0-100) LFT Test 10/13/24 21:16 Alanine Aminotransferase (ALT) 36 U/L (7-40) Alkaline Phosphatase 69 U/L (46-116) Aspartate Amino Transferase (AST) 34 U/L (13-40) Total Bilirubin 0.3 mg/dL (0.2-1.0) HgA1c, TSH Test 10/13/24 21:16 10/14/24 09:00 Thyroid Stimulating Hormone (TSH) 2.51 uIU/mL (0.55-4.78) Hemoglobin A1c 12.4 % A1C (<5.7) H Assessment/Plan Assessment/Plan 1.Supraventricular tachycardia status post chemical cardioversion 2. NSTEMI type 2 secondary to 1. 3. Acute kidney injury suspected secondary to vasomotor nephropathy 4. Hypertension 5. Dyslipidemia 6. Diabetes mellitus type 2 7. Morbid obesity classI - 2D echo, cardiology consultation, beta-francheska, discharge plan. Plan discussed with: Patient, Spouse Date of Service: Oct 14, 2024 Billing Provider: MARITZA BONILLA MD Common Visit Codes: [id number] INP/OBS CARE(MOD), NOT BILLABLE MARITZA BONILLA MD Oct 14, 2024 19:22
[2024-10-14 20:00] VITALS: PULSE 94; RESP 18; O2SAT 99
[2024-10-14] MEDS ORDERED: LOVA10TA2 PO (20:22)
[2024-10-14] MEDS ORDERED: LISI10TA34 PO (20:27)
[2024-10-14 21:00] VITALS: BP 159/105; PULSE 88; RESP 18; TEMP 98.1; O2SAT 99
[2024-10-14] MEDS: ATORVASTATIN 20 MG TAB PO SCH (22:00)
[2024-10-15 01:00] VITALS: BP 152/93; PULSE 99; RESP 18; TEMP 98.1; O2SAT 96
[2024-10-15 05:00] VITALS: BP 131/91; PULSE 78; RESP 18; TEMP 98; O2SAT 96
[2024-10-15] MEDS: HYDROcodone-ACET 5/325MG TAB PO ONE (06:14)
[2024-10-15 08:00] VITALS: PULSE 77; PULSE 95; RESP 18; O2SAT 99
[2024-10-15 08:30] VITALS: BP 133/72; PULSE 77; RESP 18; TEMP 98.3; O2SAT 99
[2024-10-15 13:00] VITALS: BP 137/91; PULSE 71; RESP 20; TEMP 98.5; O2SAT 94
[2024-10-15 16:54] VITALS: BP 144/86; PULSE 77; RESP 19; TEMP 98.6; O2SAT 94
[2024-10-15] MEDS ORDERED: METO-6 PO (18:03)
[2024-10-15] MEDS ORDERED: IBUP-1453 PO (18:03)
--- NOTE | 2024-10-15 18:05 | DVHDS2 ---
Discharge Summary Date of Admission Oct 13, 2024 at 23:45 Date of Discharge: Oct 15, 2024 Labs/Diagnostic Data: Laboratory Results Test 10/15/24 11:10 10/14/24 14:53 10/14/24 09:00 10/14/24 03:34 POC Glucose 231 mg/dl (70-106) Troponin I High Sensitivity 327 ng/L (</=34) Hemoglobin A1c 12.4 % A1C (<5.7) Magnesium Level 1.7 mg/dL (1.6-2.6) Triglycerides Level 107 mg/dL (< 150) Cholesterol Level 190 mg/dL (< 200) LDL Cholesterol 125 mg/dL (< 100) HDL Cholesterol 51 mg/dL (40-59) Sodium Level 143 mmol/L (136-145) Potassium Level 3.4 mmol/L (3.5-5.1) Chloride Level 109 mmol/L (98-107) Carbon Dioxide Level 24 mmol/L (20-31) Anion Gap 10 (5-15) Blood Urea Nitrogen 15 mg/dL (9-23) Creatinine 1.08 mg/dL (0.550-1.02) Glomerular Filtration Rate Calc 66 mL/min (>90) BUN/Creatinine Ratio 13.9 (10.0-20.0) Serum Glucose 117 mg/dL (74-106) Calcium Level 8.2 mg/dL (8.7-10.4) Test 10/13/24 21:16 White Blood Count 8.8 10^3/uL (4.4-10.8) Red Blood Count 4.85 10^6/uL (4.0-5.20) Hemoglobin 13.8 g/dL (12.2-16.2) Hematocrit 41.2 % (36.0-46.0) Mean Corpuscular Volume 85.1 fL (80.0-100.0) Mean Corpuscular Hemoglobin 28.5 pg (28.0-32.0) Mean Corpuscular Hemoglobin Concent 33.5 g/dL (32.0-36.0) Red Cell Distribution Width 13.4 % (11.8-14.3) Platelet Count 228 10^3/uL (140-450) Mean Platelet Volume 9.7 fL (6.9-10.8) Neutrophils (%) (Auto) 70.1 % (37.0-80.0) Lymphocytes (%) (Auto) 21.7 % (10.0-50.0) Monocytes (%) (Auto) 7.4 % (0.0-12.0) Eosinophils (%) (Auto) 0.5 % (0.0-7.0) Basophils (%) (Auto) 0.3 % (0.0-2.0) Neutrophils # (Auto) 6.2 10 ^3/uL (1.6-8.6) Lymphocytes # (Auto) 1.9 10 ^3/uL (0.4-5.4) Monocytes # (Auto) 0.7 10 ^3/uL (0-1.3) Eosinophils # (Auto) 0 10 ^3/uL (0-0.8) Basophils # (Auto) 0 10 ^3/uL (0-0.2) Nucleated Red Blood Cells 0.0 % Prothrombin Time 10.9 sec (9.3-11.8) Prothrombin Time INR 1.03 (0.9-1.15) Total Bilirubin 0.3 mg/dL (0.2-1.0) Aspartate Amino Transferase (AST) 34 U/L (13-40) Alanine Aminotransferase (ALT) 36 U/L (7-40) Alkaline Phosphatase 69 U/L (46-116) B-Type Natriuretic Peptide 93.95 pg/mL (0-100) Total Protein 6.8 g/dL (5.7-8.2) Albumin 4.4 g/dL (3.2-4.8) Thyroid Stimulating Hormone (TSH) 2.51 uIU/mL (0.55-4.78) Other Laboratory Tests 10/14/24 03:34 10/13/24 21:16 Brief Hx & Hospital Course: 39-year-old female with a known history of diabetes mellitus type 2, hypertension, dyslipidemia, morbid obesity classI who initially presented to the hospital with palpitations found to have supraventricular tachycardia status post chemical cardioversion after one dose of adenosine. Patient also mildly elevated troponin which was suspected secondary to NSTEMI type 2/demand ischemia because of SVT. Patient was being seen by Cardiology 2D echo was done which shows normal ejection fraction with a mild diastolic dysfunction. Patient was started on metoprolol succinate. Currently patient is complaining of some chest pain which was tender on palpation lactic costochondritis. Patient is being discharged under stable condition on beta-francheska and ibuprofen after meals only p.r.n.. Patient and patient's spouse understand verbalized understanding and agreeable to plan Condition at Discharge: Stable Final Diagnosis/Problems List 1.Supraventricular tachycardia status post chemical cardioversion 2. NSTEMI type 2 secondary to 1. 3. Acute kidney injury suspected secondary to vasomotor nephropathy 4. Hypertension 5. Dyslipidemia 6. Diabetes mellitus type 2 7. Morbid obesity classI Discharge Disposition: Home Discharge Instruct/Medications Diet: Cardiac 2g Na,low cholest Diet comment: 1999 ADA diet Activity: No Restrictions, As Tolerated Follow Up/Referral: Follow up with the PCP in 1-2 weeks Follow up with the Cardiology Dr. Herbert in 1-2 weeks Medications: Metoprolol succinate as prescribed Ibuprofen for musculoskeletal chest pain p.r.n. as needed after meals Scheduled Amlodipine Besylate (Norvasc Tablet), 1 TAB PO DAILY Cholecalciferol (Vitamin D3), 1 TAB PO DAILY, (Reported) Ibuprofen (Ibuprofen), 1 TAB PO Q6HPRN Lisinopril (Lisinopril), 10 MG PO DAILY, (Reported) Lovastatin (Mevacor), 1 TAB PO DAILY, (Reported) Metoprolol Succinate (Toprol Xl), 50 MG PO DAILY Miscellaneous Medications Ferrous Sulfate (Iron (Ferrous Sulfate)), 50 MG PO, (Reported) Glipizide (Glipizide), 10 MG PO, (Reported) Omeprazole Magnesium (Omeprazole), 40 MG PO, (Reported) Discharge Statement: "Patient was advised to return to the ER or call 911 if any headaches, dizziness, shortness of breath, chest pain, abdominal pain, bleeding, fevers, or worsening of medical condition. Patient was counseled about treatment plan, medications, possible side effects, patientverbalized understanding. All questions were answered to the best of my ability. This discharge took greater then 30 minutes in planning, reviewing documentation, counseling the patient, and discussing with other team members." ASSESSMENT ASSESSMENT Assessment 1.Supraventricular tachycardia status post chemical cardioversion 2. NSTEMI type 2 secondary to 1. 3. Acute kidney injury suspected secondary to vasomotor nephropathy 4. Hypertension 5. Dyslipidemia 6. Diabetes mellitus type 2 7. Morbid obesity classI Date of Service: Oct 15, 2024 Billing Provider: MARITZA BONILLA MD Common Visit Codes: [id number]/[id number] DISCH DAY >30min MARITZA BONILLA MD Oct 15, 2024 18:05
== END 2024-10-15 19:00 | disposition home or self-care (01) | DRG 201 ==
LOC: ER 21:08 → OVERFLOW 23:45 → TELE-WESTW 10-14 17:50
PROVIDERS: ADMIT Internal Medicine; ATTEND Internal Medicine
DX: I47.10 Supraventricular tachycardia, unspecified (principal); N17.0 Acute kidney failure with tubular necrosis; I21.A1 Myocardial infarction type 2; M94.0 Chondrocostal junction syndrome [Tietze]; I10 Essential (primary) hypertension; E11.9 Type 2 diabetes mellitus without complications; I34.0 Nonrheumatic mitral (valve) insufficiency; Z68.32 Body mass index [BMI] 32.0-32.9, adult; E66.01 Morbid (severe) obesity due to excess calories; E87.6 Hypokalemia; E83.42 Hypomagnesemia; E78.5 Hyperlipidemia, unspecified; Z79.4 Long term (current) use of insulin
CPT/HCPCS: 36415; 71045; 80048; 80053; 80061; 82962; 83036; 83735; 83880; 84443; 84484; 85025; 85610; 93005; 93306; 96361; 96374; 99291; G0378; J0153; J1815